=== PATIENT | male | born 2000 | race African-American/Black ===

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

== ENCOUNTER 2020-02-03 12:02 | Emergency (ER) | payer MEDICAID ==
[~2020-02-03] VITALS: Ht 162.6 cm; Wt 160.6 kg
[2020-02-03 12:20] VITALS: Ht 162.6 cm; Wt 160.6 kg
[2020-02-03 14:47] VITALS: BP 138/88
== END 2020-02-03 14:47 | disposition home or self-care (01) ==
LOC: ED 12:02
DX: R07.89 Other chest pain (principal)
CPT/HCPCS: Q0092